=== PATIENT | female | born 1990 | race American Indian/Alaskan Native ===

== ENCOUNTER 2019-08-31 18:18 | Emergency (ER) | payer SELFPAY ==
[2019-08-31 18:44] LABS: Hematocrit 34.5 % (30.3-42.9); Hemoglobin 12.2 gm/dl (10.1-14.3); Mean Corpuscular HGB Conc 36 % (30-34); Mean Corpuscular Volume 99 fl (79-97); Platelet Count 208 K/mm3 (140-440); Red Cell Distribution Width 13.5 % (13.2-15.2)
[2019-08-31 18:54] LABS: BUN/Creatinine Ratio 16; Blood Urea Nitrogen 8 mg/dL (7-17); Calcium 9.3 mg/dL (8.4-10.2); Hemolysis Index 2
--- NOTE | 2019-08-31 19:22 | Ultrasound Report ---
TRANSABDOMINAL OB PELVIC ULTRASOUND INDICATION / CLINICAL INFORMATION: Vaginal spotting. COMPARISON: None available. FINDINGS: There is a single intrauterine with an estimated sonographic gestational age of 14 weeks 1 day and an AGUSTÍN of 02/28/20. There is good correlation with clinical dates. I see no evidence of subch orionic hemorrhage. The heart rate is 156 bpm. The placenta is located in the fundus, is grade 0 and is free of the os. Amniotic fluid volume is normal. The uterine cervix measures 3.3 cm in length. There is a small amount of fluid in the endocervical ca nal. The right ovary measures 2.5 x 1.2 x 1.4 cm and the left ovary 3.1 x 1.3 x 2.4 cm. There is no e vidence of adnexal mass or free fluid. IMPRESSION: 1. Single viable 14 week 1 day intrauterine . 2. Small amount of nonspecific fluid in the endocervical canal. Signer Name: Shaan Helms MD Signed: 08/31/2019 7:17 PM Workstation Name: [email or web address]
--- NOTE | 2019-08-31 19:25 | Emergency Department Report ---
ED HPI - General Chief complaint: Vaginal Bleeding Stated complaint: 13 WKS PREG, BLEEDING Time Seen by Provider: 08/31/19 18:56 Source: patient Mode of arrival: Ambulatory Limitations: No Limitations - History of Present Illness Initial comments: Ms. Penn is a a 29 y/o aaf who is 13 weeks , LMP 14 weeks ago, who presents for vaginal spotting, pink light x today, pt states mild abd cramping, there is no n/v , no fever or chills, no back pain, pt denies concern for STI. She does endorse urinary frequency and urgency. She denies dysuria or abnormal vaginal discharge. MD Complaint: vaginal bleeding Onset/Timin -: days(s) Location: abdomen Radiation: LLQ, RLQ Severity: moderate Severity scale (0 -10): 3 Quality: cramping Consistency: intermittent Improves with: none Worsens with: movement Associated symptoms: vaginal bleeding, abdominal pain (cramping ). denies: vaginal discharge, dysuria, dysparuenia Vaginal bleeding: light :: Yes Number of weeks : 13 OB History - Current : no complications OB History - Previous Pregnancies: no complications Last menstrual period: 06/22/19 - Related Data : 1 Para: 0 Ab: 0 Previous Rx's Medication Instructions Recorded Last Taken Type metroNIDAZOLE [metroNIDAZOLE 1 applicatio VG BID 5 Days #1 tube 08/31/19 Unknown Rx VAGINAL 0.75% gel] Allergies Allergy/AdvReac Type Severity Reaction Status Date / Time Sulfa (Sulfonamide Allergy Hives Verified 08/31/19 18:23 Antibiotics) ED Review of Systems ROS: Stated complaint: 13 WKS PREG, BLEEDING Other details as noted in HPI Constitutional: denies: chills, fever Eyes: denies: eye pain, eye discharge, vision change ENT: denies: ear pain, throat pain Respiratory: denies: cough, shortness of breath, wheezing Cardiovascular: denies: chest pain, palpitations Endocrine: no symptoms reported Gastrointestinal: abdominal pain. denies: nausea, vomiting Genitourinary: urgency, frequency. denies: dysuria, discharge, dyspareunia Musculoskeletal: denies: back pain, joint swelling, arthralgia Skin: denies: rash, lesions Neurological: denies: headache, weakness, paresthesias Psychiatric: denies: anxiety, depression Hematological/Lymphatic: denies: easy bleeding, easy bruising ED Past Medical Hx - Past Medical History Previous Medical History?: No - Surgical History Past Surgical History?: No - Social History Smoking Status: Never Smoker Substance Use Type: None - Medications Home Medications: Home Medications Medication Instructions Recorded Confirmed Last Taken Type metroNIDAZOLE [metroNIDAZOLE 1 applicatio VG BID 5 Days #1 tube 08/31/19 Unknown Rx VAGINAL 0.75% gel] ED Physical Exam - General Limitations: No Limitations General appearance: alert, in no apparent distress - Head Head exam: Present: atraumatic, normocephalic - Eye Eye exam: Present: normal appearance Pupils: Present: normal accommodation - ENT ENT exam: Present: mucous membranes moist - Neck Neck exam: Present: normal inspection, full ROM. Absent: tenderness - Respiratory Respiratory exam: Present: normal lung sounds bilaterally. Absent: respiratory distress, wheezes, stridor, chest wall tenderness - Cardiovascular Cardiovascular Exam: Present: regular rate, normal rhythm, normal heart sounds. Absent: systolic murmur, diastolic murmur, rubs, gallop - GI/Abdominal GI/Abdominal exam: Present: soft, normal bowel sounds. Absent: distended, tenderness, guarding, rebound, rigid, bruit, hernia - Rectal Rectal exam: Present: deferred - External exam: Absent: erythema, swelling, lesions, lacerations, ecchymosis, bleeding Speculum exam: Present: erythema, vaginal discharge (brown pink ). Absent: cerv ical discharge, vaginal bleeding, foreign body, tissue, laceration Bi-manual exam: Absent: cervical motion tendernes - Extremities Exam Extremities exam: Present: normal inspection, full ROM, normal capillary refill. Absent: tenderness - Back Exam Back exam: Present: normal inspection, full ROM. Absent: tenderness, CVA tenderness (R), CVA tenderness (L), vertebral tenderness - Neurological Exam Neurological exam: Present: alert, oriented X3, CN II-XII intact, normal gait - Psychiatric Psychiatric exam: Present: normal affect, normal mood - Skin Skin exam: Present: warm, dry, intact, normal color. Absent: rash ED Course Vital Signs 08/31/19 18:24 Temperature 98.1 F Pulse Rate 77 Respiratory 16 Rate Blood Pressure 101/53 [Right] O2 Sat by Pulse 98 Oximetry ED Medical Decision Making - Lab Data Result diagrams: 08/31/19 18:29 08/31/19 18:29 Labs 08/31/19 08/31/19 08/31/19 18:29 18:29 18:29 WBC 10.0 RBC 3.50 L Hgb 12.2 Hct 34.5 MCV 99 H MCH 35 H MCHC 36 H RDW 13.5 Plt Count 208 Sodium 137 Potassium 3.6 Chloride 101.8 Carbon Dioxide 23 Anion Gap 16 BUN 8 Creatinine 0.5 L Estimated GFR > 60 BUN/Creatinine Ratio 16 Glucose 69 Calcium 9.3 HCG, Quant 40842 H Urine Color Urine Turbidity Urine pH Ur Specific [place] Urine Protein Urine Glucose (UA) Urine Ketones Urine Blood Urine Nitrite Urine Bilirubin Urine Urobilinogen Ur Leukocyte Esterase Urine WBC (Auto) Urine RBC (Auto) U Epithel Cells (Auto) Urine Mucus Blood Type Antibody Screen Ord Rhogam Gestat Weeks 08/31/19 08/31/19 18:29 19:58 WBC RBC Hgb Hct MCV MCH MCHC RDW Plt Count Sodium Potassium Chloride Carbon Dioxide Anion Gap BUN Creatinine Estimated GFR BUN/Creatinine Ratio Glucose Calcium HCG, Quant Urine Color Yellow Urine Turbidity Clear Urine pH 6.0 Ur Specific [place] 1.021 Urine Protein <15 mg/dl Urine Glucose (UA) Neg Urine Ketones Neg Urine Blood Neg Urine Nitrite Neg Urine Bilirubin Neg Urine Urobilinogen 2.0 Ur Leukocyte Esterase Neg Urine WBC (Auto) < 1.0 Urine RBC (Auto) 4.0 U Epithel Cells (Auto) 1.0 Urine Mucus 1+ Blood Type B NEGATIVE Antibody Screen Negative Ord Rhogam Gestat Weeks >=11 wet prep > 20% clues - Radiology Data Radiology results: report reviewed, image reviewed Findings Reporting MD: Shaan Helms Dictation Time: August 31, 2019 18:17 Advanced Nursing Professor: Not available 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 COMPARISON: None available. FINDINGS: There is a single intrauterine with an estimated sonographic gestational age of 14 weeks 1 day and an AGUSTÍN of 02/28/20. There is good correlation with clinical dates. I see no evidence of subchorionic hemorrhage. The heart rate is 156 bpm. The placenta is located in the fundus, is grade 0 and is free of the os. Amniotic fluid volume is normal. The uterine cervix measures 3.3 cm in length. There is a small amount of fluid in the endocervical canal. The right ovary measures 2.5 x 1.2 x 1.4 cm and the left ovary 3.1 x 1.3 x 2.4 cm. There is no evidence of adnexal mass or free fluid. IMPRESSION: 1. Single viable 14 week 1 day intrauterine . 2. Small amount of nonspecific fluid in the endocervical canal. Signer Name: Shaan Helms MD Signed: 08/31/2019 6:17 PM Workstation Name: [id number] - Medical Decision Making Wet prep > 20 clues, no vaginal bleeding on exam, no CMT, scant discharge, no pelvic pain, UB OB: single IUP, 14 weeks and 1DAY FHR: 156bmpm , ua: Nnormal, p clint: dc to home with rx for metronidazole Gel, follow up with OBGYN in 2 days as scheduled, pt given rhogam IM , pt dc 'd to self in stable condition at this time. Critical care attestation.: If time is entered above; I have spent that time in minutes in the direct care of this critically ill patient, excluding procedure time. ED Disposition Clinical Impression: Vaginal bleeding during , Bacterial vaginosis in Disposition: DC-01 TO HOME OR SELFCARE Is pt being admited?: No Does the pt Need Aspirin: No Condition: Stable Instructions: Bacterial Vaginosis (ED), (ED) Prescriptions: metroNIDAZOLE [metroNIDAZOLE VAGINAL 0.75% gel] 1 applicatio VG BID 5 Days #1 tube Referrals: PRIMARY CARE, [Primary Care Provider] - 3-5 Days Forms: Work/School Release Form(ED) Time of Disposition: 20:23
[2019-08-31 20:11] LABS: Bilirubin,Urine NEG (Negative); Blood,Urine NEG (Negative); Color,Urine Yellow (Yellow); Mucus,Urine 1+ /HPF; Protein,Urine <15 mg/dL mg/dL (Negative); WBC,Urine < 1.0 /HPF (0.0-6.0)
[2019-08-31 21:38] VITALS: BP 101/54
== END 2019-08-31 20:40 | disposition home or self-care (01) ==
LOC: ED 18:18
DX: O23.592 Infection of other part of genital tract in pregnancy, second trimester (principal); O20.8 Other hemorrhage in early pregnancy; N76.0 Acute vaginitis; B96.89 Other specified bacterial agents as the cause of diseases classified elsewhere; Z3A.14 14 weeks gestation of pregnancy
CPT/HCPCS: 36415; 76805; 80048; 81001; 84702; 85027; 86850; 86900; 86901; 87210; 87591; 96372; 99284; J2790

== ENCOUNTER 2020-02-09 16:12 | Outpatient (CLI) | payer MEDICAID ==
[2020-02-09 16:40] VITALS: BP 93/53
[2020-02-09] MEDS ORDERED: LACTATED RINGERS 1,000 ML IV SCH (17:00)
[2020-02-09 17:19] LABS: Bacteria,Urine 1+ /HPF (Negative); Bilirubin,Urine NEG (Negative); Blood,Urine NEG (Negative); Color,Urine Yellow (Yellow); Protein,Urine <15 mg/dL mg/dL (Negative); RBC,Urine < 1.0 /HPF (0.0-6.0); Urobilinogen,Urine < 2.0 mg/dL (<2.0)
== END 2020-02-09 18:01 | disposition home or self-care (01) ==
LOC: TRG 16:12 → APU 16:13 → TRG 18:01
PROVIDERS: ATTEND Obstetrics & Gynecology
DX: O47.03 False labor before 37 completed weeks of gestation, third trimester (principal); Z3A.36 36 weeks gestation of pregnancy
CPT/HCPCS: 59025; 81001

== ENCOUNTER 2020-02-18 04:27 | Outpatient (CLI) | payer MEDICAID ==
[2020-02-18 04:49] VITALS: BP 108/63
== END 2020-02-18 05:40 | disposition home or self-care (01) ==
LOC: TRG 04:27 → APU 04:36 → TRG 05:40
PROVIDERS: ATTEND Obstetrics & Gynecology
DX: O47.1 False labor at or after 37 completed weeks of gestation (principal); Z3A.38 38 weeks gestation of pregnancy
CPT/HCPCS: 59025

== ENCOUNTER 2020-02-24 08:42 | Inpatient (IN) | payer MEDICAID ==
[2020-02-24] MEDS ORDERED: ACETAMINOPHEN 325 MG TAB PO PRN (09:21)
[2020-02-24] MEDS ORDERED: ONDANSETRON 4 MG/2 ML INJ IV PRN (09:21)
[2020-02-24] MEDS ORDERED: TERBUTALINE 1 MG/1 ML INJ SUB-Q PRN (09:21)
[2020-02-24] MEDS ORDERED: LIDOCAINE (2%) 20 MG/1 ML VIAL 20 ML MDV INFILTRATI ONE (09:21)
[2020-02-24] MEDS ORDERED: miSOPROStol 25 MCG TAB VG ONE (09:21)
[2020-02-24] MEDS ORDERED: fentaNYL 100 MCG/2 ML INJ IV PRN (09:21)
[2020-02-24] MEDS ORDERED: BUTORPHANOL 2 MG/1 ML INJ IV PRN ×2 (09:21)
[2020-02-24] MEDS ORDERED: PROMETHAZINE 25 MG TAB PO PRN (09:21)
[2020-02-24] MEDS ORDERED: ePHEDrine SULFATE 50 MG/1 ML INJ IV PRN ×2 (09:21→12:24)
[2020-02-24] MEDS ORDERED: NalbUPHINE 10 MG/1 ML INJ IV PRN (09:21)
[2020-02-24] MEDS ORDERED: AMPICILLIN/NS 2 GM/100 ML 2 GM/100 ML BAG IV ONE (10:00)
[2020-02-24] MEDS ORDERED: OXYTOCIN DRIP 30 UNITS/500 ML BAG IV SCH (10:00)
[2020-02-24] MEDS ORDERED: LACTATED RINGERS 1,000 ML IV SCH (10:00)
[2020-02-24 10:09] LABS: Hematocrit 35.3 % (30.3-42.9); Hemoglobin 12.3 gm/dl (10.1-14.3); Mean Corpuscular HGB Conc 35 % (30-34); Mean Corpuscular Volume 98 fl (79-97); Platelet Count 156 K/mm3 (140-440); Red Blood Count 3.59 M/mm3 (3.65-5.03); Red Cell Distribution Width 13.6 % (13.2-15.2)
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
[2020-02-24] MEDS ORDERED: MINERAL OIL 30 ML ORAL LIQD ONE ×2 (11:36→17:38)
[2020-02-24] MEDS ORDERED: fentaNYL-BUPIV 2 MCG/ML-0.125% 200 MCG/100 ML BAG EPIDURAL ONE (12:13)
[2020-02-24] MEDS ORDERED: NALOXONE 2 MG/2 ML INJ IV PRN (12:24)
--- NOTE | 2020-02-24 12:25 | Anesthesia Consultation ---
Anesthesia Consult and Med Hx Date of service: 02/24/20 - Airway Anesthetic Teeth Evaluation: Good ROM Head & Neck: Adequate Mental/Hyoid Distance: Adequate Mallampati Class: Class II Intubation Access Assessment: Probably Good - Pulmonary Exam CTA: Yes - Cardiac Exam Cardiac Exam: RRR - Pre-Operative Health Status ASA Pre-Surgery Classification: ASA2 Proposed Anesthetic Plan: Epidural - Pulmonary Hx Asthma: No COPD: No Hx Pneumonia: No - Cardiovascular System Hx Hypertension: No - Central Nervous System Hx Seizures: No Hx Psychiatric Problems: No - Endocrine Hx Renal Disease: No Hx End Stage Renal Disease: No Hx Hypothyroidism: No Hx Hyperthyroidism: No - Hematic Hx Anemia: No Hx Sickle Cell Disease: No - Other Systems Hx Alcohol Use: No
--- NOTE | 2020-02-24 12:26 | Progress Note ---
Labor Epidural - Labor Epidural Start Time: 11:45 Stop Time: 11:50 Performed by:: JACOBY ESTEVEZ Procedure: Patient is requesting epidural for labor pain. H&P, and labs reviewed. Procedure explained, questions answered, consent obtained. Patient in sitting position with blood pressure cuff and pulse ox on and working. Timeout performed immediately before start of procedure. Sterile betadine prep/drape. 3 mL 1% lidocaine skin wheal at L[3]-L[4]. 18-gauge Touhy epidural needle advanced to [id number] with saline at [7] cm. 27-gauge spinal needle advanced until clear, free-flowing CSF. Intrathecal dexmedetomidine [5] mcg administered and needle removed. Epidural catheter advanced to [12] cm, negative aspiration for blood and csf, negative test dose 3 ml 1.5% lidocaine with epinephrine. Sterile steri-strips and tegaderm applied, followed by tape reinforcement. Patient tolerated procedure well.
[2020-02-24] MEDS ORDERED: fentaNYL-BUPIV 2 MCG/ML-0.125% 200 MCG/100 ML BAG EPIDURAL SCH (13:00)
[2020-02-24] MEDS ORDERED: AMPICILLIN/NS 1 GM/50 ML 1 GM/50 ML BAG IV SCH (14:00)
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
--- NOTE | 2020-02-24 18:05 | Procedure Note ---
OB Delivery Note - Delivery Date of Delivery: 02/24/20 (1743) Surgeon: JENAE GUILLORY Estimated blood loss: 100cc - Vaginal Delivery presentation: vertex Delivery position: OA Intrapartum events: extend. bradycardia, mult.variable deceleratio Delivery augmentation: rupture of membranes, pitocin Delivery monitor: internal FHT, internal uterine Route of delivery: Delivery placenta: spontaneous Delivery cord: 3 umbilical vessels Episiotomy: none Delivery laceration: none Delivery comments: of a live 5'1 female with Apgars of 7 and 9 over an intact perineum under epidural anesthesia at 1743 on 02/24/2020. placed on maternal abd/chest. Delayed cord clamping was done. Cord double clamped and cut by father of baby. Spontaneous delivery of a complete and intact placenta with Rivera side presenting at 1746. Cord blood collected. Fundus is firm and midline located 4 below the U. Lochia is scant. - A at 1 minute: 7 at 5 minutes: 9 Infant Gender: Female (5'1)
[2020-02-24] MEDS ORDERED: HYDROcodone/ACETAMINOPHEN 5-325 MG TAB PO PRN (19:46)
[2020-02-24] MEDS ORDERED: WITCH HAZEL/ GLYCERIN PAD TP PRN (19:46)
[2020-02-24] MEDS ORDERED: BENZOCAINE/MENTHOL 20/0.5% TOP SPRAY 56 GM TP PRN (19:46)
[2020-02-24] MEDS ORDERED: diphenhydrAMINE 25 MG CAP PO PRN (19:46)
[2020-02-24] MEDS ORDERED: LANOLIN/ZINC/DIMETHICONE (LANSINOH) 7 GM TP PRN (19:46)
[2020-02-24] MEDS ORDERED: MINERAL OIL 30 ML ORAL LIQD PO PRN (22:00)
[2020-02-25] MEDS: IBUPROFEN 600 MG TAB PO SCH ×3 (00:57→23:54)
[2020-02-25] MEDS ORDERED: PRENATAL VIT27-FE FUMARATE-FOLIC ACID VIT TAB PO SCH (10:00)
[2020-02-25 11:06] LABS: Hematocrit 35.9 % (30.3-42.9); Hemoglobin 12.2 gm/dl (10.1-14.3)
--- NOTE | 2020-02-25 13:06 | Progress Note ---
Assessment and Plan PPD # 1 A: S/P p: Continue monitoring Pain med prn D/C home tomm if stable Subjective - Subjective Date of service: 02/25/20 Principal diagnosis: Patient reports: appetite normal, voiding normally, pain well controlled, ambulating normally : doing well, nursing well Objective - Vital Signs Latest vital signs: Vital Signs Temp Pulse Resp BP BP BP Pulse Ox 02/25/20 11:41 98.1 F 69 20 97/51 97 02/25/20 07:42 97.8 F 68 20 130/75 97 02/25/20 04:30 97.7 F 71 18 88/51 98 02/24/20 21:30 98.4 F 71 16 104/55 02/24/20 21:25 98.2 F 77 18 103/60 98 02/24/20 20:45 77 106/60 02/24/20 20:30 78 106/59 02/24/20 20:15 75 104/59 02/24/20 20:00 78 109/63 02/24/20 19:45 73 113/67 02/24/20 19:30 81 110/66 02/24/20 19:15 72 110/65 02/24/20 19:14 98.6 F 72 18 110/65 98 02/24/20 19:00 75 112/68 02/24/20 18:45 83 115/68 02/24/20 18:30 115/67 02/24/20 18:15 90 109/62 02/24/20 18:00 97 H 122/67 02/24/20 17:59 102 H 117/64 02/24/20 17:52 88 98 02/24/20 17:47 91 H 98 02/24/20 17:42 109 H 100 02/24/20 17:37 121 H 98 02/24/20 17:34 90 126/53 02/24/20 17:32 88 99 02/24/20 17:27 102 H 99 02/24/20 17:25 76 91 02/24/20 17:22 89 100 02/24/20 17:17 87 100 02/24/20 17:12 100 H 100 02/24/20 17:07 114 H 99 02/24/20 17:05 86 112/66 02/24/20 17:02 87 100 10/21/20 17:01 98.3 F 18 10/20 16:57 76 100 10/21/20 16:52 78 100 10/21/20 16:47 83 100 10/21/20 16:42 82 100 10/20 16:37 91 H 100 1021/20 16:32 71 101/62 100 10/20 16:27 79 100 10/20 16:22 95 H 100 02/23/20 16:17 71 100 10/20 16:12 75 100 1021/20 16:07 79 100 1021/20 16:02 78 102/61 100 10/21/20 15:57 73 100 10/20 15:52 77 100 10/20 15:47 83 100 10/20 15:42 71 100 10/20 15:37 75 100 10/20 15:33 71 103/62 10/20 15:32 69 100 02/23/20 15:27 73 100 02/23/20 15:22 79 100 10/20 15:17 71 100 10/20 15:12 68 100 10/20 15:07 67 100 10/20 15:02 89 93/54 99 02/23/20 14:57 69 100 02/23/20 14:52 72 100 10/20 14:47 74 100 10/20 14:42 76 100 10/20 14:37 68 100 10/20 14:32 80 108/63 100 10/20 14:27 77 100 10/20 14:22 77 99 02/23/20 14:17 79 97 1021/20 14:12 81 97 1021/20 14:07 83 97 1021/20 14:02 104 H 96/57 98 1021/20 13:57 96 H 97 10/20 13:54 88 109/66 1021/20 13:52 92 H 97 10/20 13:48 75 112/68 10/21/20 13:47 74 98 10/21/20 13:42 77 111/68 100 10/21/20 13:38 82 105/65 10/21/20 13:37 82 98 1021/20 13:32 78 99/62 98 10/21/20 13:28 85 106/55 02/24/20 13:27 95 H 98 02/24/20 13:22 86 107/65 98 02/24/20 13:18 79 113/66 02/24/20 13:17 82 98 02/24/20 13:12 83 105/66 100 02/24/20 13:08 78 103/61 02/24/20 13:07 75 98 Intake and Output 02/24/20 02/25/20 02/25/20 22:59 06:59 14:59 Intake Total 120 Output Total 700 1000 Balance -700 -1000 120 Intake: Oral 120 Output: Urine 700 1000 Indwelling Catheter 700 1000 Other: Total, Intake Amount 120 Total, Output Amount 700 1000 # Voids Void 1 Estimated Blood Loss 100 - Exam Breasts: Present: normal Abdomen: Present: normal appearance, soft, normal bowel sounds Vulva: both: normal Uterus: Present: normal, firm, fundal height below umbilicus Extremities: Present: normal
--- NOTE | 2020-02-25 16:49 | Discharge Summary ---
Providers - Providers Date of Admission: 02/24/20 17:00 Date of discharge: 02/26/20 Attending physician: SUNITA VELASCO JR, MD Primary care physician: SUNITA VELASCO JR, MD Hospitalization Reason for admission: active labor Delivery: Episiotomy: none Laceration: none Other procedures: none complications: none Discharge diagnosis: IUP at term delivered baby: female Hospital course: Pt was admitted in active labor. She had a and a uncomplicated pp stay. See H&P, delivery summary, and pp notes. Condition at discharge: Stable Disposition: DC-01 TO HOME OR SELFCARE Plan - Discharge Medications Prescriptions: Ibuprofen [Motrin 600 MG tab] 600 mg PO Q6H #30 tablet - Provider Discharge Summary Additional instructions: [] Smoking cessation referral if applicable(refer to patient education folder for contact #) [] Refer to [facility] Booklet Call your doctor immediately for: * Fever > 100.5 * Heavy vaginal bleeding ( >1 pad per hour) * Severe persistent headache * Shortness of breath * Reddened, hot, painful area to leg or breast * Drainage or odor from incision. * Keep incision clean and dry at all times and follow doctor's instructions regarding bathing/showering - Follow up plan Follow up: SUNITA VELASCO JR, MD [Primary Care Provider] - 6 Weeks
--- NOTE | 2020-02-25 16:49 | Post Anesthesia Evaluation ---
- Post Anesthesia Evaluation Patient Participated: Yes Airway Patent: Yes Stable Respiratory Function: Yes Nausea/Vomiting: No Temp > 96.8F: Yes Pain Manageable: Yes Adequeate Hydration: Yes Anesthesia Complications: No Block Receding Appropriately: Yes
[2020-02-26] MEDS: IBUPROFEN 600 MG TAB PO SCH (05:54)
[2020-02-26 09:39] VITALS: BP 94/49
== END 2020-02-26 14:20 | disposition home or self-care (01) | DRG 775 ==
LOC: TRG 08:42 → APU 08:43 → LD 10:50 → TRG 18:06 → OB 22:00
PROVIDERS: ADMIT Obstetrics & Gynecology; ATTEND Obstetrics & Gynecology
PROC: 10E0XZZ Delivery of Products of Conception, External Approach (ICD-10-PCS; principal; 2020-02-24)
PROC: 3E0R3BZ Introduction of Anesthetic Agent into Spinal Canal, Percutaneous Approach (ICD-10-PCS; 2020-02-24)
PROC: 00HU33Z Insertion of Infusion Device into Spinal Canal, Percutaneous Approach (ICD-10-PCS; 2020-02-24)
PROC: 3E0234Z Introduction of Serum, Toxoid and Vaccine into Muscle, Percutaneous Approach (ICD-10-PCS; 2020-02-24)
PROC: 10907ZC Drainage of Amniotic Fluid, Therapeutic from Products of Conception, Via Natural or Artificial Opening (ICD-10-PCS; 2020-02-24)
PROC: 10H07YZ Insertion of Other Device into Products of Conception, Via Natural or Artificial Opening (ICD-10-PCS; 2020-02-24)
DX: O99.824 Streptococcus B carrier state complicating childbirth (principal); O76 Abnormality in fetal heart rate and rhythm complicating labor and delivery; O26.893 Other specified pregnancy related conditions, third trimester; Z3A.39 39 weeks gestation of pregnancy; Z67.21 Type B blood, Rh negative; Z88.2 Allergy status to sulfonamides; Z37.0 Single live birth
CPT/HCPCS: 36415; 85014; 85018; 85027; 85461; 86592; 86850; 86870; 86900; 86901; 96360; 96361; 96365; 96366; 96376; G0378; A6250; J0290; J0595; J2590; J2790; J7120; U0003